=== PATIENT | female | born 1985 | race Caucasian/White ===

== ENCOUNTER 2025-08-24 19:19 | Emergency (ER) | payer BC, SELFPAY ==
[2025-08-24 19:29] VITALS: BP 136/94; PULSE 86; RESP 18; TEMP 36.8; O2SAT 98
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
== END 2025-08-24 20:02 | disposition home or self-care (01) ==
PROVIDERS: Emergency Provider Registered Nurse
DX: G43.909 Migraine, unspecified, not intractable, without status migrainosus (principal); R11.0 Nausea; F17.290 Nicotine dependence, other tobacco product, uncomplicated; Z79.899 Other long term (current) drug therapy
CPT/HCPCS: 99203; G0463